=== PATIENT | male | born 1995 | race Caucasian/White ===

== ENCOUNTER 2024-01-13 09:08 | Emergency (ER) | payer SELFPAY ==
[2024-01-13 09:15] VITALS: BP 113/60; PULSE 102; TEMP 36.4; O2SAT 95; BMI 32.0
--- NOTE | 2024-01-13 10:47 | ED_ITS ---
HPI - Dental/Oral General Chief complaint: Dental/Oral Stated complaint: DENTAL PAIN Time Seen by Provider: 01/13/24 09:18 Mode of arrival: walk-in Limitations: no limitations History of Present Illness HPI Narrative: The patient is coming to the ER with right upper dental pain and swelling that he noticed over the last 2 days, he noted that he noted the swelling in his face over the last 2 days he does not have any significant pain at the moment The patient needed dental referral as well Related Data Previous Rx's ?Medication ?Instructions ?Recorded amoxicillin 875 mg-potassium 1 tab PO Q12H #14 tabs 01/13/24 clavulanate 125 mg tablet ibuprofen 600 mg tablet 600 mg PO Q8H PRN pain #20 tabs 01/13/24 Allergies Allergy/AdvReac Type Severity Reaction Status Date / Time No Known Drug Allergies Allergy Verified 01/13/24 09:13 Review of Systems ROS Status of ROS 10 or more systems reviewed and unremark able except as noted in history and below Exam Narrative Exam Narrative: Dental exam : the patient have a very poor dental hygiene with multiple decayed tooth in the tooth #5 as well as for have gum inflammation just above it Nurses notes and vital signs reviewed and patient is not hypoxic. General: Well-appearing and in no apparent distress. Skin: Warm, dry, no pallor noted. No rash. Head: Normocephalic, atraumatic. Mild right maxillary area swelling Neck: Supple, non-tender. Eye: Pupils are equal, round and EOMI. No scleral icterus. Ears, Nose, Mouth, and Throat: TM are clear, no nasal mucosal hypertrophy. Oral mucosa is moist, no posterior oropharynx erythema, uvula is mid-line Cardiovascular: Regular Rate and Rhythm without murmur, gallop or rub. Respiratory: No accessory muscle use or respiratory distress. Lungs are clear to auscultation, no wheezing, rales or rhonchi Chest Wall: no tenderness Back: No midline thoracic or lumbar vertebral tenderness. No CVA tenderness Musculoskeletal: normal ROM, no calf or popliteal tenderness, no lower extremity edema/swelling GI: Abdomen is soft, non-distended. Normal bowel sounds. No masses appreciated. No tenderness to palpation. No rebound, guarding, or rigidity noted. Neurological: A&O x4. No cranial nerve dysfunction observed. No truncal ataxia. Moves all extremities. Sensation intact. Psychiatric: Cooperative and interactive. Normal mood and affect. Constitutional Vital Signs, click to edit/add: Last Vital Signs Temp 97.6 F 01/13/24 09:15 Pulse 102 H 01/13/24 09:15 Resp 18 01/13/24 09:15 BP 113/60 01/13/24 09:15 Pulse Ox 95 01/13/24 09:15 O2 Del Method Room Air 01/13/24 09:15 Course Vital Signs Vital signs: Vital Signs Temperature 97.6 F 01/13/24 09:15 Pulse Rate 102 H 01/13/24 09:15 Respiratory Rate 18 01/13/24 09:15 Blood Pressure 113/60 01/13/24 09:15 Pulse Oximetry 95 01/13/24 09:15 Oxygen Delivery Method Room Air 01/13/24 09:15 Temperature 97.6 F 01/13/24 09:15 Pulse Rate 102 H 01/13/24 09:15 Respiratory Rate 18 01/13/24 09:15 Blood Pressure 113/60 01/13/24 09:15 Pulse Oximetry 95 01/13/24 09:15 Oxygen Delivery Method Room Air 01/13/24 09:15 MDM - Dental/Oral MDM Narrative Medical decision making narrative: The patient presented to us with a dental pain and infection He was started on Augmentin in addition to refer to the dentist with outpatient also provided with ibuprofen prescription The patient is to follow up with primary care physician in next 2-3 days or to return to the emergency department should any of the signs or symptoms worsen or new symptoms develop. The patient agrees with the following Diagnosis and Treatment plan and the patient will be discharged home. Discharge Plan Discharge Stand Alone Forms: Portal Instructions Chief Complaint: Dental/Oral Clinical Impression: Toothache, Dental abscess Patient Disposition: Home, Self-Care Time of Disposition Decision: 09:24 Condition: Good Prescriptions / Home Meds: New amoxicillin-pot clavulanate 875-125 mg tablet 1 tab PO Q12H Qty: 14 0RF ibuprofen 600 mg tablet 600 mg PO Q8H PRN (Reason: pain) Qty: 20 0RF Print Language: Chinese Instructions: Dental Abscess (ED) Referrals: Physician,Non-Staff, MD [Primary Care Provider] - 1 week Discharge Date/Time: 01/13/24 09:32
== END 2024-01-13 09:32 | disposition home or self-care (01) ==
PROVIDERS: Emergency Provider Emergency Medicine
DX: K04.7 Periapical abscess without sinus (principal); K08.89 Other specified disorders of teeth and supporting structures
CPT/HCPCS: 99283

== ENCOUNTER 2024-01-15 13:16 | Emergency (ER) | payer SELFPAY ==
[2024-01-15 13:19] VITALS: BP 147/81; PULSE 103; TEMP 37.2; O2SAT 97; BMI 32.3
--- NOTE | 2024-01-15 13:47 | ED_ITS ---
HPI - Dental/Oral General Chief complaint: Dental/Oral Stated complaint: TOOTH PAIN Time Seen by Provider: 01/15/24 13:26 Source: patient Mode of arrival: walk-in Limitations: no limitations History of Present Illness HPI Narrative: 28-year-old male presents to the emergency department with complaint of dental abscess. Was evaluated this past Sunday for dental infection, started on Augmentin. Today, reports increased swelling to his face and a soft area to his gums. + Dental pain. Denies any fever, chills, difficulty swallowing. Quality:?pressure Severity:?moderate Timing:?as above, worsening Context: Normal setting and activity? Modifying factors:?pain worse with palpation Associated symptoms: as above Related Data Previous Rx's ?Medication ?Instructions ?Recorded amoxicillin 875 mg-potassium 1 tab PO Q12H #14 tabs 01/13/24 clavulanate 125 mg tablet ibuprofen 600 mg tablet 600 mg PO Q8H PRN pain #20 tabs 01/13/24 clindamycin HCl 300 mg capsule 300 mg PO Q6H 7 days #28 caps 01/15/24 Allergies Allergy/AdvReac Type Severity Reaction Status Date / Time No Known Drug Allergies Allergy Verified 01/13/24 09:13 Review of Systems ROS Narrative CONST: Denies fever, chills HENT: +dental problem, facial swelling.? Denies congestion, ear pain, mouth sores, rhinorrhea EYES: Denies eye discharge, eye pain SKIN: Denies color change Exam Narrative Exam Narrative: Vital signs noted Nurses notes reviewed CONST: Nontoxic, well appearing, well nourished, in no distress.? No d iaphoresis.?? HENT: normocephalic, atraumatic.? Normal hearing.? Normal appearing ext ears, canals, TM's.? No nasal discharge.? MOUTH/THROAT: + caries throughout of varying levels.? Tooth #5 is tender with surrounding swelling, gingival fluctuance.? + facial swelling. No trismus.? Patient maintaining own secretions.? Moist mucous membranes, no increased oropharyngeal erythema, edema, exudate.? No submandibular or submental tenderness.? No tenderness or elevation of the roof of the mouth. EYES: clear, no injections, discharge NECK: supple, no lymphadenopathy NEURO: A&Ox3 SKIN: warm, dry PSYCHIATRIC: normal mood and affect Constitutional Vital Signs, click to edit/add: Last Vital Signs Temp 99 F 01/15/24 13:19 Pulse 103 H 01/15/24 13:19 Resp 20 01/15/24 13:19 BP 147/81 H 01/15/24 13:19 Pulse Ox 97 01/15/24 13:19 Course Vital Signs Vital signs: Vital Signs Temperature 99 F 01/15/24 13:19 Pulse Rate 103 H 01/15/24 13:19 Respiratory Rate 20 01/15/24 13:19 Blood Pressure 147/81 H 01/15/24 13:19 Pulse Oximetry 97 01/15/24 13:19 Temperature 99 F 01/15/24 13:19 Pulse Rate 103 H 01/15/24 13:19 Respiratory Rate 20 01/15/24 13:19 Blood Pressure 147/81 H 01/15/24 13:19 Pulse Oximetry 97 01/15/24 13:19 MDM - Dental/Oral MDM Narrative Medical decision making narrative: This is a pleasant 28-year-old male who presents to the emergency department with complaint of dental infection. On arrival, afebrile, vital signs are stable. On exam, nontoxic, well-appearing patient in no distress. Display some right maxillary tenderness. On oral examination, tooth #5 is broken with surrounding gingival swelling and fluctuance. Findings consistent with abscess. Verbal permission obtained. Gingiva was incised with #11 blade scalpel through which mild to moderate amount of purulent exudate was expressed until blood was noted. Patient had improvement of the discomfort after procedure performed. Favor dental abscess Jesse's less likely based on history and physical exam Disposition ? The patient was discharged. Plan: Patient will be discharged to home. Condition at time of disposition: stable He will be changed to clindamycin Advised to follow up with dental provider. He was given name and phone number to follow-up with. Advised to return for any worsening and/or development of new, concerning signs or symptoms PLEASE NOTE: Portions of the medical record may have been produced using electronic mushroom laborer and may contain errors with respect to translation of words which may not have been identified prior to finalization of the chart. Medical Records Attestation: I reviewed the patient's medical records. Discharge Plan Discharge Stand Alone Forms: Portal Instructions Chief Complaint: Dental/Oral Clinical Impression: Dental abscess, Toothache Patient Disposition: Home, Self-Care Time of Disposition Decision: 13:37 Condition: Good Mode of Transportation: Private Vehicle Prescriptions / Home Meds: New clindamycin HCl 300 mg capsule 300 mg PO Q6H 7 Days Qty: 28 0RF No Action amoxicillin-pot clavulanate 875-125 mg tablet 1 tab PO Q12H Qty: 14 0RF ibuprofen 600 mg tablet 600 mg PO Q8H PRN (Reason: pain) Qty: 20 0RF Print Language: Portuguese Instructions: Dental Abscess (ED) Additional Instructions: [facility] [address] [place] [address] [place] [address] Referrals: Deshawn Woodard [Other] - As soon as possible Discharge Date/Time: 01/15/24 14:11 Procedures ED ID Incision & Drainage I&D Type: abcess Site: oral Side (if applicable): right Technique: incised with #11 blade Packing used: none Complications: bleeding
== END 2024-01-15 14:11 | disposition home or self-care (01) ==
PROVIDERS: Emergency Provider Emergency Medicine
DX: K04.7 Periapical abscess without sinus (principal); K08.89 Other specified disorders of teeth and supporting structures
CPT/HCPCS: 41800; 99283